=== PATIENT | female | born 1945 | race Caucasian/White ===

== ENCOUNTER 2016-05-05 01:52 | Inpatient (IN) | payer MEDICARE ==
--- NOTE | ~2016-05-05 | CR72 ---
[facility] A Service of [facility] & [facility] / [facility] RADIOLOGY TEXT RESULTS PATIENT: AMMON BELLO LOCATION: CEDOF [address]49-70 : 43 UNIT #: [id number] AGE: [address]: Estella Goff MD SEX: F ORDER DR: [id number] [facility] [address] [place], [place] [address] [id number] MR#: [id number] Acc #: [id number] NAME: AMMON BELLO. : 1945 SEX: F STUDY DATE/TIME: 05/05/2016 01:28 UNIT: CEDOF ROOM: 56520 STUDY DESCRIPTION: CR Chest Single View Portable Attending Physician: Estella Goff M.D. Ordering Physician: Yariel Ambrose M.D. Primary Care Physician: Zan Davis MEDICAL IMAGING REPORT This report is preliminary unless electronic signature is present EXAM Portable chest, 05/05 at 0128 hours INDICATIONS Shortness of air with difficulty breathing that started tonight. History of hypertension. FINDINGS AP portable chest compared with 11/24/2015. Heart size is stable. There is atherosclerotic disease in the aorta, in addition to aortic ectasia. The lungs are clear except for granulomatous calcifications. No pneumothorax is seen. There is degenerative disease in the left shoulder. IMPRESSION No active disease. Dictated by... Aldo Pat Jr., M.D. THIS IS AN ELECTRONICALLY VERIFIED REPORT Aldo Pat Jr., M.D. at 05/05/2016 5:57 AM MARQUIS/milly TD: 05/05/2016 05:06 JOB #: [id number] MEDICAL IMAGING REPORT COPY
--- NOTE | ~2016-05-05 | EKG ---
PATIENT: AMMON BELLO UNIT #: [id number] Ventricular Rate: 76 BPM Atrial Rate: 76 BPM P-R Interval: 164 ms QRS Duration: 74 ms Q-T Interval: 410 ms QTC Calculation(Bezet): 461 ms P Freeburn: 55 degrees Calculated R Freeburn: -18 degrees Calculated T Freeburn: 63 degrees Diagnosis Line: Normal sinus rhythm Diagnosis Line: Normal ECG Diagnosis Line: No previous ECGs available Diagnosis Line: Confirmed by REX NEW MD ([id number]) on 05/05/2016 Diagnosis Line: 6:14:45 PM INTERPRETING MD: VIRGEN BRUNNER
--- NOTE | ~2016-05-05 | DS ---
Unit #: [id number] #: [id number] Patient: SHERICE BELLO [id number] [address] [place], [place] [address] [id number] I MR#: [id number] NAME: SHERICE BELLO. ROOM: 312 Age: 71 Sex: F Admission Date: 05/05/2016 : 1945 Discharge Date: Attending Physician: Vinod Amos M.D. Primary Care Physician: Zan Davis DISCHARGE SUMMARY DISCHARGE DIAGNOSES 1. Delirium. Atypical seizure versus manic bipolar. 2. History of seizure versus pseudoseizure on Vimpat. 3. Steroid induced diabetes. 4. Anxiety with questionable bipolar disorder. 5. Chronic respiratory failure and chronic obstructive pulmonary disease. CONSULTANTS Dr. Méndez of neurology. Dr. Doshi with psychiatry. PROCEDURES PERFORMED None. DIAGNOSTIC DATA IMAGING: Chest x-ray on 05/05/2016 with impression no active disease. CT head without contrast with impression generalized atrophy. No acute abnormalities. LABORATORY: BMP with glucose 84, BUN 25, creatinine 1.0, sodium 138, potassium 4.5, chloride 111, CO2 24, total protein 6.2, total bilirubin 0.3, AST 18, ALT 18, alkaline phosphatase 90, amylase 71, lipase 28. CBC with white blood cell count 6.1, RBC 4.58, hemoglobin 13.2, hematocrit 40.8, MCV 59.1, MCH 28.9, MCHC 32.4, RDW 13.8, platelets 198, MPV 7.6. HOSPITAL COURSE The patient is a 71-year-old female with a past medical history of chronic obstructive pulmonary disease, seizure versus pseudoseizure and psychiatric disorder. She was brought to the emergency department due to altered mental status. EMS was called when the patient had an episode where she was quite confused and then became somnolent. When the patient was seen by the admitting physician she was sleeping and snoring. After noxious stimuli she has been awake and alert, but still confused. She was trying to speak Portuguese. When asked for her name she stated that her name was Sherice Hernandez. She lives in [place]. The hospital's name is Portuguese. The patient was seen in the past multiple times and seen in consultation with Dr. Méndez. 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 She had EEG done and MRI done in the past due to seizure disorder. She would be given Ativan and would end up sedated likely because of her fragile lung status with chronic obstructive pulmonary disease. She was started in the past on Vimpat and currently recommended to remain on Vimpat. Dr. Méndez had spoken with the patient Unit #: [id number] #: [id number] Patient: SHERICE BELLO and her at the last hospitalization that the patient may have manic disorder and this may not be seizure. But in either case, she should follow up with a psychiatrist, which to my understanding the patient has not seen one since her last hospitalization and that she if is indeed having nonconvulsive seizures that the next time instead of being hospitalized at either [facility] or coming here to [facility] she should go to [facility] to be seen and evaluated by their epilepsy team. At this time we are consulting Dr. Doshi for possible manic disorder in a possibly bipolar patient. I believe the patient is truly stable medically for discharge if she is accepted to [facility] for inpatient psychiatric treatment. If not, then she could be discharged home, again stressing that she follow up with psychiatry as outpatient and that the next time that she has one of these episodes be evaluated at [facility] by the epilepsy team. This stay we have assessed her CBC, chem. 7 and lipid panel, which were all unremarkable. Alcohol was undetectable in her blood. Acetaminophen as well as salicylates were undetectable. Her urine drug screen was only positive for opioids and TCA and no others. B12 is 335. TSH is 1.0. Troponins were undetectable as well as other cardiac enzymes. RPR was nonreactive. DISCHARGE CONDITION Stable. DISPOSITION See either again by Our or home. FOLLOWUP 1. Follow up with psychiatrist. 2. Follow up with family physician within one to two weeks. ACTIVITY Resume activities as per prior to hospitalization with ambulating every day as tolerated. DISCHARGE MEDICATIONS 1. Albuterol 1 puff q.4 h. p.r.n. shortness of breath and/or dyspnea. 2. Symbicort 2 puffs inhaled b.i.d. 3. Gabapentin 800 mg p.o. t.i.d. 4. Vimpat 100 mg p.o. b.i.d. 5. Keppra 500 mg p.o. b.i.d. 6. Requip 0.25 mg q.8 h. 7. Zocor 10 mg p.o. at bedtime. 8. Montelukast 10 mg p.o. at bedtime. 9. Aspirin 81 mg p.o. daily. 10. Lortab 5/325 mg 1 tablet q.4 h. p.r.n. moderate pain. 11. Protonix 40 mg p.o. daily. Dictated by... DEMETRI Del Rio TD: 05/06/2016 13:05 JOB #: [id number] Unit #: [id number] #: [id number] Patient: SHERICE BELLO DISCHARGE SUMMARY X X DISCHARGE SUMMARY
--- NOTE | ~2016-05-05 | CO ---
Unit #: [id number] #: [id number] Patient: SHERICE LIZAMA [id number] [facility]. [place], [place] [address] [id number] I MR#: [id number] NAME: SHERICE LIZAMA. ROOM: 312 Age: 71 Sex: F Admission Date: 05/05/2016 : 1945 Attending Physician: Vinod Amos M.D. Primary Care Physician: Zan Davis Consultation Date: 05/06/2016 CONSULTATION REPORT REASON FOR CONSULTATION Bizarre behavior last night, confusion, tania. HISTORY OF PRESENT ILLNESS Ms. Sherice lizama is a 71-year-old white female, seen in room 312 at [facility] on 05/06/2016. The patient reports that she was admitted last night as she was having bizarre behavior, tried to take off her clothes. The patient reported that "I had a manic episode" and the patient was pleasant and cooperative during interview. Able to give reliable information. The patient reports that she has a history of seizure disorder and when she has seizure she has manic episode. The patient reported last episode was 2 weeks ago. The patient reports that she suffer from bipolar mood disorder and was treated at [facility] in the past. The patient was compliant, cooperative, and able to give coherent information. The patient has a sitter, but currently denied any suicidal or homicidal ideation or any psychotic symptom. The patient reports that she is not taking any medication for her bipolar. PAST PSYCHIATRIC HISTORY Remarkable for history of bipolar mood disorder. No history of any inpatient treatment recently, but in the past treated at [facility]. PAST MEDICAL HISTORY The patient's medical history is remarkable for history of seizure disorder versus pseudoseizure, steroid-induced diabetes mellitus, chronic respiratory failure, COPD, delirium resolved. MEDICATIONS The patient is currently on albuterol, Symbicort, gabapentin, Vimpat, Keppra, Requip, Zocor, aspirin, Lortab, and Protonix. FAMILY HISTORY AND SOCIAL HISTORY The patient lives with her , has a good support system. Denied any use of drugs or alcohol. No history of any abuse. REVIEW OF SYSTEMS Complete review of systems is unremarkable at this time. MENTAL STATUS EXAMINATION General appearance, the patient dressed in hospital attire, lying comfortably in bed, able to answer questions appropriately, made good eye contact. Attention span and concentration, fair. Speech, regular rate and coherent. Oriented in time, place, and person. Mood and affect were Unit #: [id number] #: [id number] Patient: SHERICE LIZAMA sad, dysphoric, and anxious. Thought process, coherent and goal directed. Thought content, the patient denied any thoughts of harming self or others or any psychotic symptom. Recent and remote memory, fair. Language, able to name object and repeat phrases. Fund of knowledge, fair. Insight and judgment, fair to slightly impaired. DIAGNOSES Psychiatric: Bipolar mood disorder, not otherwise specified, F31.89; delirium, F05, resolved. Secondary diagnosis: Deferred. Medical diagnosis: Please refer to H and P. Stressors: Psychosocial stressors. ASSESSMENT/PLAN 1. Supportive psychotherapy and psychoeducation provided to the patient. 2. Educated about benefits and side effects of medication and course and prognosis of illness. 3. The patient agreed with the plan to try medication, plan to start the patient on Zyprexa 5 mg at bedtime for mood stabilization, and I also advised the patient to follow up in the outpatient clinic. The patient may be discharged home with a plan to follow up in outpatient clinic. Please feel free to call if any questions, telephone #[phone]. At this time, the patient is not suicidal or homicidal or psychotic. At this time, the patient does not need any inpatient psychiatric treatment. Dictated by... Silva Shetty/lety TD: 05/07/2016 01:23 JOB #: [id number] CONSULTATION REPORT X Giancarlo Doshi MD X CONSULTATION REPORT
--- NOTE | ~2016-05-05 | CO ---
Unit #: [id number] #: [id number] Patient: AMMON BELLO [id number] [facility]. [place], [place] [address] [id number] I MR#: [id number] NAME: AMMON BELLO. ROOM: 312 Age: 71 Sex: F Admission Date: 05/05/2016 : 1945 Attending Physician: Vinod Amos M.D. Primary Care Physician: Zan Davis Consultation Date: 05/05/2016 CONSULTATION REPORT PRIMARY CARE PHYSICIAN Dr. Jose Tillman and Zan Davis, Nurse Practitioner. PROBLEM LIST 1. This patient has been evaluated in the past with history of encephalopathy and mental status changes like this. She has been at least intubated 3 times to my knowledge, for this. 2. History of pseudoseizures and possible seizure and supposed to have epilepsy evaluation at [facility] or other institution of choice. 3. Diastolic dysfunction. 4. Anxiety and bipolar disorder per records. 5. Possible manic episodes. 6. Hyperlipidemia. 7. Hypertension. 8. Chronic respiratory failure, on home O2. 9. History of steroid-induced diabetes. 10. Parotid surgery. 11. Cholecystectomy. 12. Thyroid surgery and previous EGD and colonoscopy. SOURCE OF INFORMATION The medical records. I have seen this patient twice, also evaluation done by other physicians including on this admission and also my discussion with the patient's who actually came to the bedside. HISTORY OF PRESENT ILLNESS This is a 71-year-old female, who is actually known to me. She has had frequent episodes of confusion like events, questionable seizures, questionable pseudoseizures and she ends up with possibly Ativan and other antiepileptics and because of her respiratory failure frequently has been intubated. She has been at [facility], she has been at [facility]. I saw her in last November and recommend that she has [facility] evaluation done for epilepsy and also psych evaluation done. In the meantime, I am not sure if that was ever done, because her is unaware of any such evaluations or plans. Since the last evaluation, she has been to [facility], I think one of the best approach would be the best happened again instead of going to [facility] or [facility], she goes straight to [facility] and be evaluated there. She would have this confusional episodes, manic type episode, she would not sleep for days, now she is trying to talk in [place] and then she ends up waking up 7 days later and absolutely fine and because of respiratory distress she has been intubated. Unit #: [id number] #: [id number] Patient: AMMON BELLO She is getting better. She is following commands. She is oriented to herself. She is moving all extremities and nothing focal. No seizure or seizure-like event. She has had prior evaluation done in detail. PAST MEDICAL HISTORY As discussed above. PAST SURGICAL HISTORY As discussed above. ALLERGIES Phenergan, penicillin, sulfa and possible IV dye. HOME MEDICATIONS As per the MAR and possibly also in conjunction with previous records. Neurontin 800 mg t.i.d. montelukast, Requip 0.25 mg every 8 hours, Zocor 10 mg at bedtime, Pantoprazole 40 mg, Symbicort 160/4.5 mcg, Ventolin, Vimpat 100 mg p.o. b.i.d., Keppra 500 mg b.i.d., aspirin 81 mg p.o. daily, Lortab. Previously, I have seen similar treatment, but respiratory medication. FAMILY HISTORY Tuberculosis and gastric cancer. SOCIAL HISTORY The patient is , lives with her . Does not smoke or drink alcohol. REVIEW OF SYSTEMS Mostly as discussed in history of present illness. Very difficult to get details. PHYSICAL EXAMINATION VITAL SIGNS: Temperature 97.4, pulse 80, respirations 18, blood pressure 186/112, weight of 143 pounds. When she came in blood pressure was 149/76, the maximum is this one and I see gradual increase because earlier it was 151 systolic then 171 systolic, now 186, also diastolic went up. NEUROLOGIC: The patient is awake. She is alert. She follows some simple commands. She gave me a thumbs up. She told me her name and other she is confabulating and perseverating. Cranial examination demonstrates respond to threats in all simmons. Eye movements are conjugate. No ptosis. No nystagmus. I do not see any facial asymmetry. Hearing seemed to be intact. Tongue was midline. I could not visualize the oropharynx or uvula. Head turning was spontaneous. On motor examination, she has normal bulk and tone. She is moving all extremities. Strength was at least 5-/5 all over. Sensory examination intact for soft touch and pain sensation. No extinction was seen. Romberg was not evaluated. Gait examination was deferred. I could not get any reflexes. Toes are equivocal. Unit #: [id number] #: [id number] Patient: AMMON BELLO DIAGNOSTIC STUDIES LABORATORY RESULTS: Reviewed, I am really not seeing anything major. IMAGING STUDIES: Reviewed, I am really not seeing anything major. IMPRESSION Recurrent episodes of confusion. We have seen exactly the same thing in the past and she gets better. Is this manic episode that she have seizure and true seizures and nonepileptic seizures, my recommendation persist as I said before that she needs to have epilepsy monitoring done at [place] and based on that decide future course of action. I would not as an either change her medication right now supportive care. Call me for any other questions, issues, or concerns and talked to her , he says he will get on it right now, so probably the best thing would be Psych evaluation and go from there. Call me for any other questions, issues, or concerns. Dictated by... Silva Robles/lety TD: 05/06/2016 03:35 JOB #: [id number] CONSULTATION REPORT X Sharda Méndez MD CONSULTATION REPORT
--- NOTE | ~2016-05-05 | HP ---
Unit #: [id number] #: [id number] Patient: AMMON BELLO [id number] [place], [place] [address] [id number] I MR#: [id number] NAME: AMMON BELLO. ROOM: 03774 Age: 71 Sex: F Admission Date: 05/05/2016 : 1945 Attending Physician: Estella Goff M.D. Primary Care Physician: Zan Davis HISTORY AND PHYSICAL CHIEF COMPLAINT Altered mental status. HISTORY This 71-year-old female with COPD, pseudoseizures and possibly seizures, psychiatric disorder, is admitted for altered mental status. Unfortunately, no family is present. I am told by the ER physician that the patient was thought to be possibly manic and EMS was called. She was brought to this emergency department where she was quite confused, then became quite somnolent. When I went to see the patient, she had snoring respirations. After noxious stimuli, she did become awake and alert but is confused. She tends to perseverate the word Nigerien and alrighty. When I asked her her name, she told me Ammon Hernandez, that she lives with [facility] and that hospital's name was [facility]. I am really unable to get further history. The patient has been admitted to this facility in the past for altered mental status and encephalopathy requiring intubation for airway protection. She was thought to have pseudoseizures and possibly seizures. She has been seen in the past by Dr. Méndez. He suggested that she be evaluated at [facility]. Was previously taking Vimpat and Keppra at the time of her last discharge. PAST MEDICAL HISTORY 1. Episodes of altered mental status and encephalopathy. 2. The patient has required intubation for airway protection. 3. History of pseudoseizures and possibly seizures pending evaluation at [facility]. 4. Diastolic dysfunction with previous echo revealing preserved ejection fraction. 5. Anxiety and possibly bipolar disorder per old records. 6. Hyperlipidemia. 7. Hypertension. 8. Chronic respiratory failure on 2 L of oxygen with possible COPD, followed by Dr. Marinelli. 9. History of steroid-induced diabetes. 10. Parotid surgery. 11. Cholecystectomy. 12. Thyroid surgery. 13. Previous EGD and colonoscopy. ALLERGIES Phenergan, penicillin, sulfa and possibly IV dye. Unit #: [id number] #: [id number] Patient: AMMON BELLO HOME MEDICATIONS Uncertain. I do have a discharge summary from 11/2015 which includes: 1. Ventolin inhaler as needed. 2. Symbicort 160/4.5, two puffs b.i.d. 3. Neurontin 300 mg t.i.d. 4. Vimpat 100 mg b.i.d. 5. Keppra 500 mg b.i.d. 6. Requip 0.25 mg t.i.d. 7. Zocor 10 mg q. h.s. 8. Levemir. 9. Aspirin 81 mg daily. 10. Singulair 10 mg daily. 11. Protonix 40 mg daily. FAMILY HISTORY Unobtainable. Per old records, tuberculosis and gastric cancer. SOCIAL HISTORY I believe the patient lives with her . Does not smoke or drink alcohol. When I asked her who she lives with she just says "[place]." REVIEW OF SYSTEMS Impossible to obtain for above mentioned reasons. PHYSICAL EXAMINATION GENERAL APPEARANCE: Initially somnolent but then arousable, pleasantly confused 71-year-old female, currently in no acute distress. VITAL SIGNS: Temperature 97.4, pulse 88, respirations 20, blood pressure 149/76. O2 saturation is 94% on room air. HEENT: Eyes PERRLA. Extraocular muscles are intact. Pharynx edentulous. NECK: Supple without adenopathy or thyromegaly. CHEST: Clear. CARDIAC: Normal S1 and S2 without murmur. ABDOMEN: Bowel sounds are present. No hepatosplenomegaly, tenderness or masses. EXTREMITIES: Without edema. Pedal pulses are present. NEUROLOGIC EXAMINATION: Again, the patient was initially somnolent. With noxious stimuli, she became awake, is confused. Tends to perseverate on the words alrighty and Nigerien. She follows commands, is able to move all of her extremities. Cranial nerves are intact. DIAGNOSTIC STUDIES LABORATORY: Hematocrit is 37.4, normal white count and platelet count. SMA-12 - glucose 117, BUN 29, CO2 is 21, ammonia level 41, lactic acid is normal. Acetaminophen, salicylate and alcohol negligible. Cardiac markers negative. Urine tox screen positive for opiates and TCAs. I do see that patient has been prescribed Lortab in the past. Urinalysis is negative. Unit #: [id number] #: [id number] Patient: AMMON BELLO IMAGING: Head CT - generalized atrophy. Chest x-ray - no acute disease. CARDIOVASCULAR: EKG - normal sinus rhythm, rate 76, normal appearing. ASSESSMENT 1. Episodes of altered mental status: I am unsure if these are related to seizures versus psychiatric. 2. History of seizures versus pseudoseizures. 3. Steroid-induced adult onset diabetes mellitus. 4. Anxiety and possibly bipolar disorder. 5. Chronic respiratory failure and chronic obstructive pulmonary disease. PLANS 1. Obtain MRI of the brain, and ask neurology to see again in consultation. 2. Verify home medicines and hold sedatives. 3. Obtain TSH, B12, VDRL. 4. SCDs. 5. IV fluids. 6. Hopefully obtain better history if family presents to the hospital. Dictated by Estella Goff M.D. AML/df TD: 05/05/2016 05:42 JOB #: [id number] HISTORY AND PHYSICAL X Estella Goff MD HISTORY AND PHYSICAL
--- NOTE | ~2016-05-05 | CT71 ---
[facility] A Service of [facility] RADIOLOGY TEXT RESULTS PATIENT: AMMON BELLO LOCATION: CEDOF [address]-42 : [birth year] UNIT #: [id number] AGE: [address]: Estella Goff MD SEX: F ORDER DR: [id number] [facility] [address] [facility]. [place], [place] [address] [id number] MR#: [id number] Acc #: [id number] NAME: AMMON BELLO. : 1945 SEX: F STUDY DATE/TIME: 05/05/2016 01:35 UNIT: CEDOF ROOM: 16147 STUDY DESCRIPTION: CT Head Wo Contrast Attending Physician: Estella Goff M.D. Ordering Physician: Yariel Ambrose M.D. Primary Care Physician: Zan Davis MEDICAL IMAGING REPORT This report is preliminary unless electronic signature is present EXAM Head CT, 05/05 at 0135 hours INDICATIONS Patient having a manic episode. Patient confused with mumbling for the last 3 days. History of hypertension and seizures. FINDINGS This CT exam was performed with one or more of the following radiation dose reduction techniques: Automatic exposure control, adjustment of mA and/or kV according to patient size, and iterative reconstruction. Axial images were obtained from the base to the vertex without contrast. Comparison made with 11/13/2015. Again seen is generalized atrophy with a frontal predominance. Ventricular size and configuration are normal. There is no acute infarct or hemorrhage. There are no masses. There are no skull fractures. There is chronic partial opacification of mastoid air cells on the right. IMPRESSION Generalized atrophy. No acute abnormalities. Dictated by... Aldo Pat Jr., M.D. THIS IS AN ELECTRONICALLY VERIFIED REPORT Aldo Pat Jr., M.D. at 05/05/2016 5:57 AM MARQUIS/milly TD: 05/05/2016 05:02 JOB #: [id number] [facility] A Service of [facility] RADIOLOGY TEXT RESULTS PATIENT: AMMON BELLO LOCATION: [facility] [address]-26 : [birth year] UNIT #: [id number] AGE: [address]: Estella Goff MD SEX: F ORDER DR: MEDICAL IMAGING REPORT COPY
[2016-05-05 01:11] LABS: URINE SOURCE CLEAN CATCH
[2016-05-05 01:19] LABS: POC - CKMB 1.7 ng/mL (0.0-7.9); POC - TROPONIN <0.05 ng/mL (<=0.05)
[2016-05-05 01:31] LABS: AMPHETAMINE NEG (NEG); BARBITURATES NEG (NEG); BENZODIAZEPINES NEG (NEG); COCAINE NEG (NEG); MARIJUANA NEG (NEG); OPIATES POS (NEG); TRICYCLIC ANTIDEPRESSANTS POS (NEG); U METHADONE NEG (NEG)
[2016-05-05 01:31] LABS: BASOPHIL% 0.7 % (0-2.5); EOSINOPHIL# 0.2 X10e3 (0-0.7); EOSINOPHIL% 3.1 % (0.0-7.0); HEMATOCRIT 37.4 % (35.0-45.0); HEMOGLOBIN 12.3 gm/dL (12.0-16.0); LYMPHOCYTE# 1.4 X10e3 (1.0-3.5); MEAN CELL VOLUME 88.2 FL (83-96); MEAN CORPUSCULAR HEMOGLOBIN 29.1 PG (28-34); MEAN PLATELET VOLUME 7.6 FL (6.5-11.5); MONOCYTE# 0.6 X10e3 (0-1.0); MONOCYTE% 11.8 % (3.0-12.0); NEUTROPHIL% 57.4 % (40-75); PLATELET COUNT 187 X10e3 (140-420); RED BLOOD COUNT 4.24 X10e (3.90-5.30); RED CELL DISTRIBUTION WIDTH 13.7 % (11.0-15.5); WHITE BLOOD COUNT 5.2 X10e3 (4.0-10.5)
[2016-05-05 01:38] LABS: ACETAMINOPHEN <10 ug/mL; ALBUMIN SERUM 3.8 g/dL (3.5-5.0); ALCOHOL BLOOD <5 mg/dL (0); ALKALINE PHOSPHATASE 90 U/L (32-92); ALT (SGPT) 18 U/L (10-40); AST (SGOT) 18 U/L (10-42); BILIRUBIN, DIRECT 0.1 mg/dL (0.0-0.2); BILIRUBIN,INDIRECT 0.2 mg/dL (0.0-0.9); BILIRUBIN,TOTAL 0.3 mg/dL (0.2-2.0); BLOOD UREA NITROGEN 29 mg/dL (9-23); CALCIUM SERUM 8.7 mg/dL (8.4-10.2); CARBON DIOXIDE 21 mmol/L (22-31); CHLORIDE 108 mmol/L (100-111); GLOM FILT RATE Estimated 57.8 mL/min (>60); GLUCOSE FASTING 117 mg/dL (70-110); POTASSIUM 4.1 mmol/L (3.5-5.1); PROTEIN TOTAL SERUM 6.2 g/dL (6.0-8.3); SALICYLATE <4.0 mg/dL; SODIUM 138 mmol/L (135-145)
[2016-05-05 01:40] LABS: DIFF IND NO
[2016-05-05 01:49] LABS: URINE APPEARANCE BLOODY; URINE COLOR YELLOW
[2016-05-05 01:50] LABS: URINE GLUCOSE NORM (NEG); URINE KETONE NEG (NEG); URINE LEUKOCYTE ESTERASE NEG (NEG); URINE NITRATE NEG (NEG); URINE PROTEIN NEG (NEG)
[2016-05-05 01:51] LABS: CULTURE INDICATED? NO; URINE BILIRUBIN NEG (NEG); URINE BLOOD NEG (NEG); URINE UROBILINOGEN NORM (NEG)
[~2016-05-05 01:52] MED LIST: ALBUTEROL17 GM INH; ALPRAZOLAM; ALPRAZOLAM PO; ASPIRIN PO; BENZONATATE PO; BUMEX1 MG PO; CARDIZEM CD; CARDIZEM SR PO; CARTIA XT240 M1 PO; CEFTRIAXON1 G/PIGGYB; CIMETIDINE800 MG PO; DILTIAZEM 24HR300 M2 PO; HUMIBID-LA600 MG PO; HYDROCODON-ACE1 EAC7 PO; HYDROXYZINE HCL25 M1 PO; INDERAL40 MG PO; INDERAL40 MG PO/SL; K-DUR20 ME1 DOB; KEPPRA500 MG PO; LEVAQUIN250 MG PO; LEVAQUIN750 M1 PO; LEVEMIR SUBQ; LIPITOR; LIPITOR PO; LORTAB 5-325 M1 EACH PO; LORTAB 5/500 TA1 TA1 PO; MAG OX PO; MONTELUKAST SOD10 MG PO; NEURONTIN PO; NEURONTIN800 MG PO; NEURONTIN800 MG PO/SL; NILSTAT PO; OMEPRAZOLE40 M1 PO; PANTOPRAZOLE SO40 MG PO; PERCOCET5/325 PO; PHENERGAN PO; PROPRANOLOL PO; REQUIP0.25 MG PO; SINGULAIR PO; SYMBICORT INH; TAGAMET; TAGAMET300 MG PO; TRAZODONE HCL150 MG PO; TYLOX1 CAP 5/50 PO; ULTRAM; VICODIN 5/1 TAB 5/50 PO; VICODIN 5/500 T1 TAB PO; VIMPAT100 MG PO; ZITHROMAX PO; ZOCOR10 MG PO; ZOFRAN PO
[2016-05-05 05:22] LABS: BASOPHIL# 0.1 X10e3 (0-0.3); BASOPHIL% 1.1 % (0-2.5); DIFF IND NO; EOSINOPHIL# 0.1 X10e3 (0-0.7); EOSINOPHIL% 2.3 % (0.0-7.0); HEMATOCRIT 40.8 % (35.0-45.0); HEMOGLOBIN 13.2 gm/dL (12.0-16.0); LYMPHOCYTE# 1.3 X10e3 (1.0-3.5); LYMPHOCYTE% 21.6 % (17.0-45.0); MEAN CELL VOLUME 89.1 FL (83-96); MEAN CORPUSCULAR HEMOGLOBIN 28.9 PG (28-34); MEAN CORPUSCULAR HGB CONC 32.4 g/dL (30-36); MEAN PLATELET VOLUME 7.6 FL (6.5-11.5); MONOCYTE# 0.5 X10e3 (0-1.0); MONOCYTE% 7.4 % (3.0-12.0); NEUTROPHIL# 4.2 X10e3 (1.5-7.1); NEUTROPHIL% 67.6 % (40-75); PLATELET COUNT 198 X10e3 (140-420); RED BLOOD COUNT 4.58 X10e (3.90-5.30); RED CELL DISTRIBUTION WIDTH 13.8 % (11.0-15.5); WHITE BLOOD COUNT 6.1 X10e3 (4.0-10.5)
[2016-05-05 06:01] LABS: GLOM FILT RATE Estimated 57.8 mL/min (>60); POTASSIUM 4.5 mmol/L (3.5-5.1)
[2016-05-06] MEDS ORDERED: ZYPREXA PO (17:20)
== END 2016-05-06 19:15 | disposition home or self-care (01) | DRG 885 ==
LOC: CED 01:52 → CEDOF 04:10 → C3A PCU 11:21
PROVIDERS: Emergency Medicine; Internal Medicine
DX: F31.9 Bipolar disorder, unspecified (principal); J96.10 Chronic respiratory failure, unspecified whether with hypoxia or hypercapnia; E11.9 Type 2 diabetes mellitus without complications; G40.909 Epilepsy, unspecified, not intractable, without status epilepticus; R41.82 Altered mental status, unspecified; I10 Essential (primary) hypertension; F41.9 Anxiety disorder, unspecified; E78.5 Hyperlipidemia, unspecified; Z90.49 Acquired absence of other specified parts of digestive tract; Z80.0 Family history of malignant neoplasm of digestive organs; Z91.041 Radiographic dye allergy status; Z88.0 Allergy status to penicillin; Z88.2 Allergy status to sulfonamides; Z79.82 Long term (current) use of aspirin; Z79.4 Long term (current) use of insulin
CPT/HCPCS: 36415; 70450; 71010; 80048; 80076; 80307; 81003; 82140; 82550; 82553; 82607; 82947; 83605; 84443; 84484; 85025; 86592; 93005; 94640; 94760; 99285; G0480; J1630

== ENCOUNTER 2016-05-23 14:27 | Inpatient (IN) | payer MEDICARE ==
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
--- NOTE | ~2016-05-23 | CR150 ---
[facility] A Service of [facility] RADIOLOGY TEXT RESULTS PATIENT: AMMON BELLO LOCATION: [facility] 573-01 : 43 UNIT #: [id number] AGE: [address]: Fernando Alvarado MD SEX: F ORDER DR: [id number] [facility] [address] [address] [facility]. [place], [place] [address] [id number] I MR#: [id number] #: [id number] NAME: AMMON BELLO. : 1945 SEX: F STUDY DATE/TIME: 05/28/2016 10:38 UNIT: [facility] ROOM: [facility] STUDY DESCRIPTION: CR Hip Min 2 Views Lt Attending Physician: Fernando Alvarado M.D. Ordering Physician: Kenn Cooney M.D. Primary Care Physician: Zan Davis MEDICAL IMAGING REPORT This report is preliminary unless electronic signature is present EXAM Left hip series 05/28/2016 INDICATION 71-year-old female with history of fracture. Fell 6 days ago. Pain in the left hip. TECHNIQUE Frontal and lateral views of the left hip were performed. 1 of the views includes a frontal pelvis. No relevant comparisons. FINDINGS The patient is status post screw and medullary medhat fixation of an otherwise probable chronic fracture in the mid shaft left femur. There is callus formation medially and laterally with a fracture line lucency laterally on the frog view. This lucent fracture line is not visualized on the orthogonal views. Imaging features are suspicious for an acute on chronic fracture deformity absent prior studies for comparison. Correlate with time course of injury in this regard for the patient. There are fracture deformities of the inferior and superior pubic rami on the left as well. There is callus formation associated with the inferior pubic ramus fracture. No distinct callous formation associated with the superior pubic ramus fracture. These may be subacute fractures particularly the inferior pubic ramus fracture although an acute fracture of the superior pubic ramus could present similarly and correlation with time course of injury is again recommended as we have no comparison studies. There is mild degenerative change of both hips. There are degenerative changes in the SI joints right greater than left and there is degenerative change in the lower lumbar spine. The bones are osteopenic. IMPRESSION ST[facility]. [facility] A Service of [facility] RADIOLOGY TEXT RESULTS PATIENT: AMMON BELLO LOCATION: [facility] 573-01 : 43 UNIT #: [id number] AGE: [address]: Fernando Alvarado MD SEX: F ORDER DR: 1. The patient is status post screw and medhat fixation of what appears to represent an otherwise chronic fracture deformity of the mid shaft left femur. There is however a lucent fracture line laterally which is suspicious for an acute on chronic fracture deformity. Correlate with time course of injury as we have no comparisons for this patient. 2. Fracture deformities of the inferior and superior pubic rami on the left. The inferior pubic ramus fracture is likely subacute to chronic. The superior pubic ramus fracture is of unclear time duration and could be an acute or subacute fracture. Correlate with time course of injury. 3. Degenerative changes in the lumbar spine and SI joints right greater than left and to both hips in a limited fashion. Osteopenia. STAT * RESULT Dictated by... Amado Phillips M.D. THIS IS AN ELECTRONICALLY VERIFIED REPORT Amado Phillips M.D. at 05/28/2016 5:21 PM HÉCTOR/luis alfredo TD: 05/28/2016 13:58 JOB #: [id number] MEDICAL IMAGING REPORT COPY
--- NOTE | ~2016-05-23 | CO ---
Unit #: [id number] #: [id number] Patient: SHERICE KO [id number] [id number] [facility]. [place], [place] [address] [id number] I MR#: [id number] NAME: SHERICE KO. ROOM: 573 Age: 71 Sex: F Admission Date: 05/23/2016 : 1945 Attending Physician: Fernando Alvarado M.D. Primary Care Physician: Zan Davis Consultation Date: 05/28/2016 CONSULTATION REPORT REASON FOR CONSULTATION Followup. DISCUSSION Ms. Sherice oK is a 71-year-old female, seen in room 573 at [facility] on 05/28/2016. The patient was pleasant, cooperative, was able to eat her dinner. The patient reports that she was diagnosed with pelvic fracture. The patient was admitted on 05/23/2016. The patient had multiple bruises on her body unexplainable. The patient reports that when she starts walking she noticed pain. The patient reports that her hip x-ray showed that she has fracture of superior pubic rami. The patient reports that she will be going to rehab. The patient reports that she is feeling sad and depressed, but denied any thoughts of harming self or others or any psychotic symptom. Tolerating medication fairly well. The patient is currently on haloperidol 0.5 mg t.i.d., Keppra, Vimpat, Lovenox, and recently started on Medrol pack. REVIEW OF SYSTEMS Complete review of systems is unremarkable. MENTAL STATUS EXAMINATION General appearance; the patient dressed casually, lying comfortably in bed, pleasant, cooperative, made good eye contact. Attention span and concentration, fair. Speech, regular rate. Oriented in time, place, and person. Mood and affect were sad and dysphoric, but able to smile. Thought process, coherent. Thought content, the patient denied any thoughts of harming self or others and denied any psychotic symptom. Recent and remote memory, fair. Language, able to name object, repeat phrases. Fund of knowledge, fair. Insight and judgment, fair to slightly impaired. DIAGNOSIS Psychiatric: Bipolar mood disorder, not otherwise specified, F31.89. ASSESSMENT/PLAN 1. Supportive psychotherapy and psychoeducation provided to the patient. 2. Educated about benefits and side effects of medication and course and prognosis of illness. Advised to continue with current medication and consider further adjustment if needed. Dictated by... Giancarlo Doshi M.D. Unit #: [id number] #: [id number] Patient: SHERICE KO MAGALIS/lety TD: 05/29/2016 01:20 JOB #: [id number] CONSULTATION REPORT X Giancarlo Doshi MD X CONSULTATION REPORT
--- NOTE | ~2016-05-23 | EKG ---
PATIENT: AMMON BELLO UNIT #: [id number] Ventricular Rate: 84 BPM Atrial Rate: 84 BPM P-R Interval: 120 ms QRS Duration: 76 ms Q-T Interval: 432 ms QTC Calculation(Bezet): 510 ms P Norwell: 7 degrees Calculated R Norwell: -27 degrees Calculated T Norwell: 66 degrees Diagnosis Line: Normal sinus rhythm Diagnosis Line: Septal infarct (cited on or before 23-MAY-2016) Diagnosis Line: Possible Lateral infarct , age undetermined Diagnosis Line: T wave abnormality, consider anterior ischemia Diagnosis Line: Prolonged QT Diagnosis Line: Abnormal ECG Diagnosis Line: When compared with ECG of 24-MAY-2016 06:24, Diagnosis Line: Questionable change in initial forces of Septal Diagnosis Line: leads Diagnosis Line: Nonspecific T wave abnormality, worse in Inferior Diagnosis Line: leads Diagnosis Line: T wave inversion more evident in Anterior leads Diagnosis Line: Confirmed by REX NEW MD ([id number]) on 05/26/2016 Diagnosis Line: 9:57:29 PM INTERPRETING MD: VIRGEN BRUNNER
--- NOTE | ~2016-05-23 | CT71 ---
[facility] A Service of [facility] RADIOLOGY TEXT RESULTS PATIENT: AMMON BELLO LOCATION: [address] : [birth year] UNIT #: [id number] AGE: [address]: Fernando Alvarado MD SEX: F ORDER DR: [id number] [facility] [address] [place], [place] [address] [id number] I MR#: [id number] Acc #: [id number] NAME: AMMON BELLO. : 1945 SEX: F STUDY DATE/TIME: 05/23/2016 14:15 UNIT: C2A ROOM: [facility] STUDY DESCRIPTION: CT Head Wo Contrast Attending Physician: Hector Marr M.D. Ordering Physician: Javier Farr D.O. Primary Care Physician: Zan Davis MEDICAL IMAGING REPORT This report is preliminary unless electronic signature is present EXAM Head CT, no contrast, 05/23/2016 INDICATIONS New onset of confusion that began today, nonverbal, moaning, bipolar disorder, uncooperative patient, history of hypertension and myocardial infarction and insulin dependent diabetes. TECHNIQUE Noncontrast CT brain was performed and compared with 05/05/2016. This CT exam was performed with one or more of the following radiation dose reduction techniques: Automatic exposure control, adjustment of mA and/or kV according to patient size, and iterative reconstruction. FINDINGS CT BRAIN: There is motion degradation; these were the best images possible. There is mild generalized atrophy, age appropriate. Sulci and ventricles otherwise unremarkable with no midline shift, no evidence of acute intracranial hemorrhage. There is no mass, mass effect or edema to suggest acute infarct, no extraaxial fluid collections are present. Mild periventricular chronic ischemic changes are present. Globes are intact. Bones are intact. There is fluid in the right mastoid air cell complex, unchanged. IMPRESSION 1. Motion degraded study demonstrates generalized atrophy and chronic ischemic changes. No clearly acute intracranial process. 2. Opacification of the right mastoid air cell complex. This was also present on the prior study. Dictated by... [facility] A Service of [facility] RADIOLOGY TEXT RESULTS PATIENT: AMMON BELLO LOCATION: [address] : 43 UNIT #: [id number] AGE: [address]: Fernando Alvarado MD SEX: F ORDER DR: Amado Phillips M.D. THIS IS AN ELECTRONICALLY VERIFIED REPORT Amado Phillips M.D. at 05/24/2016 7:39 AM HÉCTOR/milly TD: 05/23/2016 21:57 JOB #: [id number] MEDICAL IMAGING REPORT COPY
--- NOTE | ~2016-05-23 | EKG ---
PATIENT: AMMON BELLO UNIT #: [id number] Ventricular Rate: 118 BPM Atrial Rate: 118 BPM P-R Interval: 132 ms QRS Duration: 70 ms Q-T Interval: 334 ms QTC Calculation(Bezet): 468 ms P Plover: 74 degrees Calculated R Plover: 7 degrees Calculated T Plover: 81 degrees Diagnosis Line: Sinus tachycardia with Fusion complexes Diagnosis Line: Nonspecific ST abnormality Diagnosis Line: Abnormal ECG Diagnosis Line: When compared with ECG of 05-MAY-2016 01:12, Diagnosis Line: Fusion complexes are now Present Diagnosis Line: Vent. rate has increased BY 42 BPM Diagnosis Line: Non-specific change in ST segment in Lateral leads Diagnosis Line: Confirmed by BEATRIZ CHANEL MD ([id number]) on Diagnosis Line: 05/24/2016 12:09:06 AM INTERPRETING MD: YANIQUE BRUNNER
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
--- NOTE | ~2016-05-23 | DS ---
Unit #: [id number] #: [id number] Patient: AMMON BELLO [id number] [address] [place], [place] [address] [id number] I MR#: [id number] NAME: AMMON BELLO. ROOM: 573 Age: 71 Sex: F Admission Date: 05/23/2016 : 1945 Discharge Date: Attending Physician: Fernando Alvarado M.D. Primary Care Physician: Zan Davis DISCHARGE SUMMARY Please see discharge summary for complete details. HOSPITAL COURSE The patient underwent left hip x-ray as well as a CT pelvis secondary to discomfort and/or difficulty with ambulation. X-ray of left hip did reveal lucent fracture line mildly was suspicious for acute on chronic fracture deformity. There were numerous fracture deformities, which were also noted in the pelvis. We consulted Dr. Colvin and associates. Orthopedic services saw and evaluated the patient. Recommended weightbearing as tolerated but from their point of view, no surgical intervention was recommended at this point in time. The patient will be discharged home. We will arrange for home health as well as a walker at the time of discharge. Per Physical Therapy services, the patient is cleared for and stable for home discharge. Dictated by... Silva Gonzalez/lety TD: 05/29/2016 21:41 JOB #: [id number] DISCHARGE SUMMARY X Fernando Alvarado MD X DISCHARGE SUMMARY
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
--- NOTE | ~2016-05-23 | CR72 ---
[facility] A Service of [facility] RADIOLOGY TEXT RESULTS PATIENT: AMMON BELLO LOCATION: [address] : [birth year] UNIT #: [id number] AGE: [address]: Fernando Alvarado MD SEX: F ORDER DR: [id number] [facility] [address] [place], [place] [address] [id number] I MR#: [id number] Acc #: [id number] NAME: AMMON BELLO. : 1945 SEX: F STUDY DATE/TIME: 05/23/2016 14:32 UNIT: C2A ROOM: 226 STUDY DESCRIPTION: CR Chest Single View Portable Attending Physician: Hector Marr M.D. Ordering Physician: Javier Farr D.O. Primary Care Physician: Zan Davis MEDICAL IMAGING REPORT This report is preliminary unless electronic signature is present EXAM Portable chest INDICATIONS Shortness of air today. PROCEDURE Frontal view chest. COMPARISON 05/05/2016 FINDINGS Patient is rotated. Heart size is probably stable. No new dense opacity. No appreciable pleural fluid or pneumothorax. IMPRESSION No active process when allowing for significant rotation on this study. Dictated by... Brain Melendez M.D. THIS IS AN ELECTRONICALLY VERIFIED REPORT Brain Melendez M.D. at 05/25/2016 7:00 AM EED/psc TD: 05/23/2016 22:01 JOB #: [id number] MEDICAL IMAGING REPORT COPY
--- NOTE | ~2016-05-23 | HP ---
Unit #: [id number] #: [id number] Patient: AMMON BELLO [id number] [address] [address] [id number] MR#: [id number] NAME: AMMON BELLO. ROOM: 226 Age: 71 Sex: F Admission Date: 05/23/2016 : 1945 Attending Physician: Hector Marr M.D. HISTORY AND PHYSICAL CHIEF COMPLAINT Altered mental status. HISTORY OF PRESENT ILLNESS The patient is a 71-year-old female with a history of COPD, pseudoseizures and possibly seizures, and psychiatric disorder with bipolar disorder, who was recently discharged from the hospital on May 06 after evaluation by Neurology and Psychiatry. The patient was found to be in altered mental status this morning. The patient lives at home, and the called EMS for the patient with altered mental status. The patient had workup in the ER during the last admission and was discharged home on Zyprexa for bipolar disorder. However, the patient did not follow up on the Zyprexa and was unable to obtain the medications. The patient is not able to provide this history, and the history is obtained by reviewing the records and speaking to the RN at the bedside. No further history is available. The patient has multiple scratch heaton on the upper and lower extremities. PAST MEDICAL HISTORY 1. Altered mental status and encephalopathy. 2. Pseudoseizures. 3. Diastolic dysfunction with previous echo revealing preserved ejection fraction. 4. Anxiety and bipolar disorder. 5. Hyperlipidemia. 6. Hypertension. 7. Chronic respiratory failure. 8. Steroid-induced diabetes. PAST SURGICAL HISTORY 1. Parotid surgery. 2. Cholecystectomy. 3. Thyroid surgery. 4. Previous EGD and colonoscopy. ALLERGIES PHENERGAN, PENICILLIN, SULFA, AND POSSIBLY IV DYE. HOME MEDICATIONS 1. Zyprexa. 2. Lortab. 3. Keppra. 4. Aspirin. 5. Vimpat. Unit #: [id number] #: [id number] Patient: AMMON BELLO 6. Ventolin. 7. Symbicort. 8. Neurontin. 9. Montelukast. 10. Requip. 11. Zocor. 12. Pantoprazole. FAMILY HISTORY Unable to obtain. SOCIAL HISTORY Unable to obtain. REVIEW OF SYSTEMS Unable to obtain. PHYSICAL EXAMINATION GENERAL: Patient is lying in bed not in acute distress. VITAL SIGNS: Temperature 98.4, pulse 127, respiratory rate 24, blood pressure 179/94, and saturating 91% on room air. HEENT: Head atraumatic, normocephalic. Pupils equal, round, and reacting to light and accommodation. Extraocular movements are intact. Dry mucous membranes. NECK: Supple. LUNGS: Clear to auscultation. HEART: Regular rate and rhythm. ABDOMEN: Soft. Positive bowel sounds. EXTREMITIES: Multiple scratch heaton. NEUROLOGIC: Patient is moaning and unable to follow the commands and unable to communicate. PSYCHIATRIC: Unable to assess. DIAGNOSTIC STUDIES LABORATORY: Glucose 143, BUN 21, creatinine 0.8, sodium 148, potassium 3.8, chloride 113, bicarb 20, calcium 9.7, total protein 7.4, albumin 4.8, direct bilirubin 0.4, AST 68, ALT 41, and alkaline phosphatase 134. Ammonia level is 32. Lactic acid is 2.2. Acetaminophen level less than 10 and salicylate less than 4. Alcohol less than 5. INR is 1. WBC 14.9, hemoglobin 12.1, hematocrit 37.6, platelets 246,000, and neutrophils 90.3 Urinalysis shows trace leukocyte esterase, negative bacteria, and negative nitrites. IMAGING: Chest x-ray is negative. CT of the head is negative. ASSESSMENT 1. Altered mental status. 2. Bipolar disorder, noncompliant. 3. Dehydration with a sodium of 148. 4. Lactic acidosis with no source of infection. PLAN Admit the patient to observation with telemetry. Continue with IV fluids of D5 half NS at 75 mL/hour. Repeat the lactic acid. Patient has received antibiotics in the emergency room for unknown reason. Will have a psych evaluation for the altered mental status. Follow up with the lab results, and more recommendations will follow as more lab results are available. Continue with sitter at the bedside one-to-one. Further Unit #: [id number] #: [id number] Patient: AMMON BELLO recommendations will follow. Dictated by Silva Snow TD: 05/23/2016 21:19 JOB #: [id number] HISTORY AND PHYSICAL X X HISTORY AND PHYSICAL
--- NOTE | ~2016-05-23 | EKG ---
PATIENT: AMMON BELLO UNIT #: [id number] Ventricular Rate: 134 BPM Atrial Rate: 134 BPM P-R Interval: 122 ms QRS Duration: 68 ms Q-T Interval: 312 ms QTC Calculation(Bezet): 465 ms P [place]: 82 degrees Calculated R [place]: -45 degrees Calculated T [place]: 77 degrees Diagnosis Line: Sinus tachycardia Diagnosis Line: Left anterior fascicular block Diagnosis Line: Possible Anterior infarct , possibly acute Diagnosis Line: Lateral injury pattern Diagnosis Line: * ACUTE IA Diagnosis Line: Abnormal ECG Diagnosis Line: When compared with ECG of 23-MAY-2016 14:53, Diagnosis Line: Fusion complexes are no longer Present Diagnosis Line: Left anterior fascicular block is now Present Diagnosis Line: Anterior infarct is now Present Diagnosis Line: Confirmed by REX NEW MD ([id number]) on 05/25/2016 Diagnosis Line: 7:26:00 PM INTERPRETING MD: VIRGEN BRUNNER
--- NOTE | ~2016-05-23 | DS ---
Unit #: [id number] #: [id number] Patient: AMMON BELLO [id number] [address] [place], [place] [address] [id number] I MR#: [id number] NAME: AMMON BELLO. ROOM: 573 Age: 71 Sex: F Admission Date: 05/23/2016 : 1945 Discharge Date: 05/31/2016 Attending Physician: Fernando Alvarado M.D. Primary Care Physician: Zan Davis DISCHARGE SUMMARY ADDENDUM Please see discharge summaries dictated for original hospital stay as well as on 05/29/2016 for details through hospital course. Essentially in the afternoon of 05/29/2016, Physical and Occupational Therapy Services were called to re-evaluate the patient. She had difficulty even making a few steps secondary to her hip and pelvic fractures and therefore after review of her associated comorbid conditions, Physical and Occupational therapy Services recommended rehab at the time of discharge, and therefore the patient was held in the hospital on the day of 05/30/2016. Today, she is otherwise stable. Once appropriate arrangements will be made for her to be transitioned to a rehab facility, she will be discharged later this afternoon. Medications have been adjusted. Please see below for new medication list. Her blood pressure systolic has remained in the 90s to 100 and therefore, her Lopressor as well as lisinopril both have been adjusted accordingly. Lopressor has been discontinued. Her lisinopril has been decreased down to 2.5 mg on a daily basis. The patient has completed her Medrol Dosepak secondary to prescription for tachycardic cardiomyopathy. FINAL DISCHARGE DIAGNOSIS Please see above. DISCHARGE DISPOSITION To rehab. DISCHARGE MEDICATIONS Symbicort 160/4.5 two puffs b.i.d., Ventolin 1 puff q.4 p.r.n., Vimpat 100 mg p.o. b.i.d., Keppra 500 mg p.o. b.i.d., Haldol 0.5 mg p.o. q.8, Zocor 10 mg p.o. q.h.s., lisinopril 2.5 mg p.o. daily, Pepcid 20 mg p.o. b.i.d., Singulair 10 mg p.o. q.h.s., aspirin 81 mg p.o. daily. Dictated by... Silva Gonzalez/lety TD: 06/01/2016 00:58 JOB #: [id number] Unit #: [id number] #: [id number] Patient: AMMON BELLO DISCHARGE SUMMARY Page 1 of 1 X Fernando Alvarado MD X DISCHARGE SUMMARY
--- NOTE | ~2016-05-23 | EKG ---
PATIENT: AMMON BELLO UNIT #: [id number] Ventricular Rate: 115 BPM Atrial Rate: 115 BPM P-R Interval: 128 ms QRS Duration: 70 ms Q-T Interval: 346 ms QTC Calculation(Bezet): 478 ms P [place]: 56 degrees Calculated R [place]: -21 degrees Calculated T [place]: 30 degrees Diagnosis Line: Sinus tachycardia Diagnosis Line: Septal infarct (cited on or before 23-MAY-2016) Diagnosis Line: Abnormal ECG Diagnosis Line: When compared with ECG of 23-MAY-2016 22:12, Diagnosis Line: (unconfirmed) Diagnosis Line: Serial changes of evolving Septal infarct Present Diagnosis Line: Confirmed by REX NEW MD ([id number]) on 05/25/2016 Diagnosis Line: 7:29:02 PM INTERPRETING MD: VIRGEN BRUNNER
--- NOTE | ~2016-05-23 | CR72 ---
[facility] A Service of [facility] RADIOLOGY TEXT RESULTS PATIENT: AMMON BELLO LOCATION: [address] : [birth year] UNIT #: [id number] AGE: [address]: Fernando Alvarado MD SEX: F ORDER DR: [id number] [facility] [address] [place], [place] [address] [id number] I MR#: [id number] Acc #: [id number] NAME: AMMON BELLO. : 1945 SEX: F STUDY DATE/TIME: 05/24/2016 4:46 UNIT: [facility] ROOM: [facility] STUDY DESCRIPTION: CR Chest Single View Portable Attending Physician: Fernando Alvarado M.D. Ordering Physician: Estella Goff M.D. Primary Care Physician: Zan Davis MEDICAL IMAGING REPORT This report is preliminary unless electronic signature is present EXAM AP portable chest Date: 05/24/2016 04:46 HISTORY PICC line placement. Admitted 05/23/2016. Shortness of breath and confusion. COMPARISON AP portable chest 05/23/2016 at 14:32 FINDINGS Right arm approach PICC tip extends to the cavoatrial junction. No visible pneumothorax. No acute airspace disease changes are seen. Heart size is stable. Calcific atherosclerotic changes in the aortic knob. Chronic-appearing degenerative changes in both shoulders. Osteopenia. IMPRESSION 1. Right arm approach PICC tip extends to the cavoatrial junction. No pneumothorax. 2. No acute airspace disease. Dictated by... Giulia Prado M.D. THIS IS AN ELECTRONICALLY VERIFIED REPORT Giulia Prado M.D. at 05/24/2016 10:02 PM SOO/ten TD: 05/24/2016 08:34 JOB #: [id number] [facility] A Service of [facility] RADIOLOGY TEXT RESULTS PATIENT: AMMON BELLO LOCATION: [address]- : 43 UNIT #: [id number] AGE: [address]: Fernando Alvarado MD SEX: F ORDER DR: MEDICAL IMAGING REPORT COPY
--- NOTE | ~2016-05-23 | CO ---
Unit #: [id number] #: [id number] Patient: SHERICE KO [id number] [address] [place], [place] [address] [id number] I MR#: [id number] NAME: SHERICE KO. ROOM: 573 Age: 71 Sex: F Admission Date: 05/23/2016 : 1945 Attending Physician: Fernando Alvarado M.D. Primary Care Physician: Zan Davis Consultation Date: 05/26/2016 CONSULTATION REPORT REASON FOR CONSULTATION Followup. DISCUSSION Ms. Sherice Ko is a 71-year-old white female, seen in room 573, bed 1, at [facility] on 05/26/2016. The patient was pleasant and cooperative during interview, alert, and oriented in time, place, and person. The patient was able to answer question more spontaneously. The patient is feeling much better. Reported that she has a history of bipolar disorder, and during her manic "seizure" she has these episodes. The patient denied anyone eating her up or causing any injuries. The patient is sleeping good, and eager to go home. The patient currently denied any thoughts of harming self or others; alert and oriented in time, place, and person. REVIEW OF SYSTEMS Complete review of systems unremarkable. MENTAL STATUS EXAMINATION General appearance, the patient is dressed casually, lying comfortably in bed, made good eye contact. Attention span and concentration, fair. Speech, regular rate, coherent, spontaneous, oriented in time, place, and person. Mood and affect were labile. Thought process, coherent, goal directed. Thought content, the patient denied any thoughts of harming self or others or any psychotic symptom. Recent and remote memory, fair. Language, able to name object, repeat phrases. Fund of knowledge, fair to slightly impaired. DIAGNOSES Psychiatric: Bipolar mood disorder, not otherwise specified, F31.89. Secondary diagnosis: Deferred. Medical diagnosis: Please refer to H and P. Stressors: Psychosocial stressor. ASSESSMENT/PLAN 1. Supportive psychotherapy and psychoeducation were provided to the patient. 2. Educated about benefits and side effects of medication and course and prognosis of illness. The patient can be discharged from [facility] as the patient is stable after the patient is cleared by APS. Please feel free to call if any questions, telephone Unit #: [id number] #: [id number] Patient: SHEIRCE KO #[phone]. Dictated by... Silva Shetty/lety TD: 05/27/2016 06:50 JOB #: [id number] CONSULTATION REPORT X Giancarlo Doshi MD X CONSULTATION REPORT
--- NOTE | ~2016-05-23 | CO ---
Unit #: [id number] #: [id number] Patient: AMMON BELLO [id number] [address] [place], [place] [address] [id number] I MR#: [id number] NAME: AMMON BELLO. ROOM: [facility] Age: 71 Sex: F Admission Date: 05/23/2016 : 1945 Attending Physician: Fernando Alvarado M.D. Primary Care Physician: Zan Davis CONSULTATION REPORT REASON FOR CONSULTATION Elevated troponin. HISTORY OF PRESENT ILLNESS This is a 71-year-old white female who was admitted with mental status changes. She was seen by our group in February of 2015 because of congestive heart failure. She gave a history at that time of a myocardial infarction 30 years ago and had cardiac catheterization at [facility] and found no blockages according to previous records. She is known to have hypertension, hyperlipidemia and bipolar disorder. According to the , she has had no recent complaints of chest pain or shortness of breath. It was felt the patient was initially dehydrated and was started on IV fluids. Her lactic acid was elevated at 2. Electrocardiogram was obtained, and it was felt the patient had an acute ST elevation myocardial infarction. EKG was faxed to the on-call derrick engineer and felt that there was no acute ST elevation. Her troponin was elevated at 9.05 but has since peaked at 11.69. She has been treated with Lovenox, aspirin and nitrates. The patient remained delirious and was unable to tell if she had chest pain. She was transferred to the intensive care unit. PAST MEDICAL HISTORY 1. Two-D echocardiogram, 05/24/2016, shows an ejection fraction of 35%. There was akinesis to the mid and distal septum, apex, inferior apical wall. Right ventricular systolic pressure 47 mmHg. There was severe mitral regurgitation, qnddofkx-et-xntufd tricuspid regurgitation. 2. The patient reported myocardial infarction 30 years ago with normal cath at [facility]. No details available. 3. Hypertension. 4. Hyperlipidemia. 5. Peripheral vascular disease. 6. Cerebrovascular accident. 7. Bipolar disorder. 8. Seizure disorder. 9. COPD. 10. Nonsmoker. PAST SURGICAL HISTORY 1. Parotid surgery. 2. Cholecystectomy. 3. Thyroid surgery. SOCIAL HISTORY Unit #: [id number] #: [id number] Patient: AMMON BELLO The patient is . There is no history of tobacco, alcohol or illicit drug use. FAMILY HISTORY Negative for coronary artery disease. ALLERGIES Promethazine, sulfa and IV contrast. HOME MEDICATIONS 1. Neurontin 800 mg t.i.d. 2. Singulair 10 mg q.h.s. 3. Requip 0.25 mg q.8 hours. 4. Simvastatin 10 mg q.h.s. 5. Protonix 40 mg daily. 6. Symbicort 160/4.5 mcg 2 puffs b.i.d. 7. Albuterol 1 puff q.4 hours p.r.n. 8. Vimpat 100 mg b.i.d. 9. Aspirin 81 mg daily. 10. Keppra 500 mg b.i.d. 11. Lortab 5/325 mg q.4 hours p.r.n. 12. Zyprexa 5 mg q.h.s. REVIEW OF SYSTEMS Unable to obtain because of the patient's confusion. PHYSICAL EXAMINATION VITAL SIGNS: Blood pressure 160/90, heart rate 100, temperature 99.6. GENERAL: This is a 71-year-old white female who is in no acute distress. NEUROLOGIC: She is awake but nonverbal. There are no without focal weaknesses. NECK: Trachea is midline. No thyromegaly or lymphadenopathy. No jugular venous distention. CARDIOVASCULAR: S1, S2. Heart sounds are normal. No murmurs, no rubs, no clicks. Regular rate and rhythm. CHEST: Clear to auscultation without rales, rhonchi or wheezes. ABDOMEN: Soft, nontender with bowel sounds present. No organomegaly. EXTREMITIES: Without leg edema. SKIN: Warm and dry. DIAGNOSTIC STUDIES LABORATORY STUDIES: Glucose 155, BUN 23, creatinine 0.9, sodium 148, potassium 3.3. CK total 2,443, MB 46.6, MB index 1.9, troponin 9.05 to 11.69. Cholesterol 201, triglycerides 175, LDL 97, HDL 69. White count 15.4, hemoglobin 12.2, hematocrit 37.3, platelet count 245. IMAGING: Chest x-ray - No active disease. CARDIOVASCULAR STUDIES: Electrocardiogram on 05/23 shows normal sinus rhythm with no acute ischemic changes. Repeat electrocardiogram, 05/24, shows anterior wall myocardial infarction with new ST changes. Q waves noted in V1-V4. IMPRESSION 1. Acute anterior wall myocardial infarction. 2. Cardiomegaly with ejection fraction of 35%. 3. Hypertension. Unit #: [id number] #: [id number] Patient: AMMON BELLO 4. Hyperlipidemia. 5. Bipolar disorder. 6. Hypokalemia. PLAN 1. Cardiology was consulted for elevated troponin. 2. Troponin is equivalent to acute non-ST elevation anterior wall myocardial infarction with anterior wall electrocardiogram changes. 3. Recommend emergent cardiac catheterization with PCI. This has been discussed with the patient's on the phone. Procedure risks discussed with him. He is agreeable. 4. Will start the patient on IV fluids. 5. Supplement potassium. 6. Further recommendations pending results of cardiac catheterization. Dictated by... Gui Khan A.P.R.N. for Silva Parra/javad TD: 05/25/2016 09:48 JOB #: [id number] CONSULTATION REPORT X Gui Khan APRN X CONSULTATION REPORT
--- NOTE | ~2016-05-23 | CO ---
Unit #: [id number] #: [id number] Patient: AMMON KO [id number] [address] [place], [place] [address] [id number] I MR#: [id number] NAME: AMMON KO ROOM: 573 Age: 71 Sex: F Admission Date: 05/23/2016 : 1945 Attending Physician: Fernando Alvarado M.D. Primary Care Physician: Zan Davis Consultation Date: 05/29/2016 CONSULTATION REPORT REASON FOR CONSULTATION Pelvis fracture. HISTORY OF PRESENT ILLNESS Ms. Ko is a 71-year-old female with a left pelvis fracture. The patient reports that she has a history of bipolar disease. She reports that she blacks out on occasion. She does not recall any details to how she injured the pelvis or broke the pelvis. She does have a history of a left hip fracture that was repaired by a medhat and screws. She does not recall the details of that injury either. The patient reports "she does crazy things when because of her bipolar disease." The patient reports that she lives with her and her grandkids. Her daughter lives down the street. She denies any abuse from her or family members. PAST MEDICAL HISTORY Significant for altered mental status, pseudoseizures, anxiety, bipolar, hyperlipidemia, hypertension, chronic respiratory failure, diabetes. MEDICATIONS Include Zyprexa, Lortab, Keppra, aspirin, Vimpat, Ventolin, Symbicort, Neurontin, montelukast, Requip, Zocor, and pantoprazole. ALLERGIES Phenergan, penicillin, sulfa and IV dye. FAMILY HISTORY Insignificant. SOCIAL HISTORY The patient lives at home with her and grandkids. She denies any smoking alcohol or illicit drug use. PAST SURGICAL HISTORY Significant for parotid surgery, cholecystectomy, thyroid surgery, EGD and colonoscopy, and left hip pinning. REVIEW OF SYSTEMS Ten organ systems reviewed. The patient denies any blurry vision, congestion, sore throat, shortness of breath, chest pain, abdominal pain, urinary incontinence, numbness, tingling, skin ulcers, lesions, anxiety, depression. Positive for joint pain. PHYSICAL EXAMINATION GENERAL: No acute distress. Alert and oriented x3. Unit #: [id number] #: [id number] Patient: AMMON KO VITAL SIGNS: Temperature 98.5, pulse 85, respirations 20, blood pressure 91/68. HEENT: PERRLA. Nonicteric sclerae. THORAX: Trachea midline. No thyromegaly. CARDIAC: S1, S2. No extra sounds or murmurs. LUNGS: Clear to auscultation. No rales or rhonchi. ABDOMEN: Nondistended, nontender. Positive bowel sounds. : Deferred. MUSCULOSKELETAL: No erythema or ecchymosis. 2+ dorsalis pedis bilateral pulses. Positive bruising and ecchymosis to the right neck. Abrasions at both feet, both knees, and both elbows. NEUROLOGIC: 2 through 12 intact. SKIN: Cool and dry. PSYCHIATRIC: Good insight and good judgment. Mood and affect are pleasant. DIAGNOSTIC STUDIES IMAGING STUDIES: X-rays of the hip and CT scan of the pelvis shows a nondisplaced left superior and inferior pubic ramus fracture with callus formation. ASSESSMENT Left pelvis fracture. PLAN I have discussed treatment options with the patient. No surgical intervention is warranted at this time. We will have physical therapy ambulate the patient. She is weightbearing as tolerated with a walker. The patient will need a followup appoint with Dr. Patel in 1 month. The patient will need rehab placement. Dictated by... Kimmy Salvador for Silva Zamarripa/lety TD: 05/29/2016 21:13 JOB #: [id number] CONSULTATION REPORT X Morena Guthrie CONSULTATION REPORT
[2016-05-23 13:28] LABS: BASOPHIL# 0.1 X10e3 (0-0.3); BASOPHIL% 0.5 % (0-2.5); HEMATOCRIT 37.6 % (35.0-45.0); HEMOGLOBIN 12.1 gm/dL (12.0-16.0); LYMPHOCYTE# 0.4 X10e3 (1.0-3.5); LYMPHOCYTE% 2.6 % (17.0-45.0); MEAN CELL VOLUME 89.3 FL (83-96); MEAN CORPUSCULAR HEMOGLOBIN 28.8 PG (28-34); MEAN CORPUSCULAR HGB CONC 32.2 g/dL (30-36); MONOCYTE% 6.6 % (3.0-12.0); NEUTROPHIL# 13.5 X10e3 (1.5-7.1); NEUTROPHIL% 90.3 % (40-75); PLATELET COUNT 246 X10e3 (140-420); RED BLOOD COUNT 4.21 X10e (3.90-5.30); WHITE BLOOD COUNT 14.9 X10e3 (4.0-10.5)
[2016-05-23 13:49] LABS: DIFF IND NO
[2016-05-23 13:56] LABS: URINE SOURCE CATH
[2016-05-23 14:05] LABS: URINE APPEARANCE CLEAR; URINE BILIRUBIN NEG (NEG); URINE BLOOD 1+ (NEG); URINE COLOR YELLOW; URINE GLUCOSE NEG (NEG); URINE KETONE NEG (NEG); URINE LEUKOCYTE ESTERASE TRACE (NEG); URINE NITRATE NEG (NEG); URINE PROTEIN NEG (NEG); URINE SPECIFIC GRAVITY 1.014 (1.003-1.035); URINE UROBILINOGEN 0.2 MG/DL (NEG)
[2016-05-23 14:08] LABS: URBCS1 AUWI 0-2 /[HPF] (0-2); URINE BACTERIA AUWI NEG (NEGATIVE); URINE SQUAMOUS EPITHELIAL CELL NONE SEEN /[HPF]; UWBCS1 AUWI 0-2 (0-5)
[2016-05-23 14:09] LABS: CULTURE INDICATED? NO
[2016-05-23 14:22] LABS: AMPHETAMINE NEG (NEG); BARBITURATES NEG (NEG); BENZODIAZEPINES NEG (NEG); COCAINE NEG (NEG); MARIJUANA NEG (NEG); OPIATES POS (NEG); TRICYCLIC ANTIDEPRESSANTS NEG (NEG); U METHADONE NEG (NEG)
[~2016-05-23 14:27] MED LIST changes: +ZYPREXA PO
[2016-05-23 15:20] LABS: PARTIAL THROMBOPLASTIN TIME 23.6 SECONDS (23.5-31.3); PROTHROMBIN TIME (PATIENT) 10.9 SECONDS (9.6-11.5)
[2016-05-23 15:29] LABS: ALBUMIN SERUM 4.8 g/dL (3.5-5.0); ALKALINE PHOSPHATASE 134 U/L (32-92); ALT (SGPT) 41 U/L (10-40); AST (SGOT) 68 U/L (10-42); BILIRUBIN, DIRECT 0.4 mg/dL (0.0-0.2); BILIRUBIN,INDIRECT 1.3 mg/dL (0.0-0.9); BILIRUBIN,TOTAL 1.7 mg/dL (0.2-2.0); BLOOD UREA NITROGEN 21 mg/dL (9-23); BUN/CREATININE RATIO 26.25; CALCIUM SERUM 9.7 mg/dL (8.4-10.2); CARBON DIOXIDE 20 mmol/L (22-31); CHLORIDE 113 mmol/L (100-111); CREATININE SERUM 0.8 mg/dL (0.6-1.4); GLOM FILT RATE Estimated ABOVE60 mL/min (>60); GLUCOSE FASTING 143 mg/dL (70-110); POTASSIUM 3.8 mmol/L (3.5-5.1); PROTEIN TOTAL SERUM 7.4 g/dL (6.0-8.3); SALICYLATE <4.0 mg/dL; SODIUM 148 mmol/L (135-145)
[2016-05-23 15:30] LABS: ACETAMINOPHEN <10 ug/mL; ALCOHOL BLOOD <5 mg/dL (0)
[2016-05-24 00:51] LABS: %MB 1.9 % (0.0-4.0); MB 46.6 ng/ml
[2016-05-24 05:33] LABS: BASOPHIL# 0.1 X10e3 (0-0.3); BASOPHIL% 0.4 % (0-2.5); HEMATOCRIT 37.3 % (35.0-45.0); HEMOGLOBIN 12.3 gm/dL (12.0-16.0); LYMPHOCYTE# 1.4 X10e3 (1.0-3.5); LYMPHOCYTE% 9.1 % (17.0-45.0); MEAN CELL VOLUME 87.3 FL (83-96); MEAN CORPUSCULAR HEMOGLOBIN 28.8 PG (28-34); MEAN PLATELET VOLUME 8.6 FL (6.5-11.5); MONOCYTE# 1.5 X10e3 (0-1.0); MONOCYTE% 9.9 % (3.0-12.0); NEUTROPHIL# 12.4 X10e3 (1.5-7.1); NEUTROPHIL% 80.6 % (40-75); PLATELET COUNT 245 X10e3 (140-420); RED BLOOD COUNT 4.27 X10e (3.90-5.30); RED CELL DISTRIBUTION WIDTH 13.8 % (11.0-15.5); WHITE BLOOD COUNT 15.4 X10e3 (4.0-10.5)
[2016-05-24 05:35] LABS: DIFF IND YES
[2016-05-24 05:52] LABS: BLOOD UREA NITROGEN 23 mg/dL (9-23); BUN/CREATININE RATIO 25.55; CALCIUM SERUM 9.4 mg/dL (8.4-10.2); CARBON DIOXIDE 19 mmol/L (22-31); CHLORIDE 115 mmol/L (100-111); CREATININE SERUM 0.9 mg/dL (0.6-1.4); GLOM FILT RATE Estimated ABOVE60 mL/min (>60); GLUCOSE FASTING 155 mg/dL (70-110); POTASSIUM 3.3 mmol/L (3.5-5.1); SODIUM 148 mmol/L (135-145)
[2016-05-24 05:56] LABS: PLATELET ESTIMATE NORMAL (NORMAL); RBC NORMAL YES
[2016-05-24 06:53] LABS: CHOLESTEROL 201 mg/dL (0-200); HDL CHOLESTEROL 69 mg/dL (35-95); LDL CHOLESTEROL 97 mg/dL (-130); LDL/HDL RATIO 1 RATIO (0-4); TRIGLYCERIDES 175 mg/dL (10-160)
[2016-05-24 06:57] LABS: INR 1.1; PARTIAL THROMBOPLASTIN TIME 34.1 SECONDS (23.5-31.3)
[2016-05-25 05:22] LABS: BASOPHIL# 0.1 X10e3 (0-0.3); BASOPHIL% 0.5 % (0-2.5); HEMATOCRIT 35.2 % (35.0-45.0); HEMOGLOBIN 11.3 gm/dL (12.0-16.0); LYMPHOCYTE# 1.4 X10e3 (1.0-3.5); LYMPHOCYTE% 9.6 % (17.0-45.0); MEAN CELL VOLUME 87.7 FL (83-96); MEAN CORPUSCULAR HEMOGLOBIN 28.1 PG (28-34); MEAN PLATELET VOLUME 7.9 FL (6.5-11.5); MONOCYTE# 1.5 X10e3 (0-1.0); MONOCYTE% 10.5 % (3.0-12.0); NEUTROPHIL# 11.6 X10e3 (1.5-7.1); NEUTROPHIL% 79.4 % (40-75); PLATELET COUNT 218 X10e3 (140-420); RED BLOOD COUNT 4.01 X10e (3.90-5.30); RED CELL DISTRIBUTION WIDTH 14.4 % (11.0-15.5); WHITE BLOOD COUNT 14.6 X10e3 (4.0-10.5)
[2016-05-25 05:28] LABS: DIFF IND NO
[2016-05-25 06:31] LABS: BLOOD UREA NITROGEN 26 mg/dL (9-23); BUN/CREATININE RATIO 37.14; CALCIUM SERUM 8.9 mg/dL (8.4-10.2); CARBON DIOXIDE 20 mmol/L (22-31); CHLORIDE 110 mmol/L (100-111); CREATININE SERUM 0.7 mg/dL (0.6-1.4); GLOM FILT RATE Estimated ABOVE60 mL/min (>60); GLUCOSE FASTING 151 mg/dL (70-110); POTASSIUM 3.3 mmol/L (3.5-5.1); SODIUM 141 mmol/L (135-145)
[2016-05-26 17:08] LABS: BLOOD UREA NITROGEN 13 mg/dL (9-23); BUN/CREATININE RATIO 18.57; CALCIUM SERUM 8.2 mg/dL (8.4-10.2); CARBON DIOXIDE 22 mmol/L (22-31); CHLORIDE 114 mmol/L (100-111); CREATININE SERUM 0.7 mg/dL (0.6-1.4); GLOM FILT RATE Estimated ABOVE60 mL/min (>60); GLUCOSE FASTING 127 mg/dL (70-110); MAGNESIUM 1.9 mg/dL (1.6-3.0); POTASSIUM 4.2 mmol/L (3.5-5.1); SODIUM 138 mmol/L (135-145)
[2016-05-31 05:28] LABS: HEMATOCRIT 31.7 % (35.0-45.0); MEAN CELL VOLUME 90.7 FL (83-96); MEAN CORPUSCULAR HEMOGLOBIN 28.8 PG (28-34); MEAN CORPUSCULAR HGB CONC 31.7 g/dL (30-36); MEAN PLATELET VOLUME 8.8 FL (6.5-11.5); RED BLOOD COUNT 3.49 X10e (3.90-5.30); RED CELL DISTRIBUTION WIDTH 15.2 % (11.0-15.5); WHITE BLOOD COUNT 5.4 X10e3 (4.0-10.5)
[2016-05-31 06:03] LABS: BLOOD UREA NITROGEN 16 mg/dL (9-23); BUN/CREATININE RATIO 22.85; CALCIUM SERUM 7.8 mg/dL (8.4-10.2); CARBON DIOXIDE 22 mmol/L (22-31); CHLORIDE 110 mmol/L (100-111); CREATININE SERUM 0.7 mg/dL (0.6-1.4); GLOM FILT RATE Estimated ABOVE60 mL/min (>60); GLUCOSE FASTING 101 mg/dL (70-110); POTASSIUM 4.5 mmol/L (3.5-5.1); SODIUM 137 mmol/L (135-145)
== END 2016-05-31 16:30 | DRG 280 ==
LOC: CED 14:27 → CEDOF 16:37 → C2A 18:18 → C5C 22:09 → CICCU2 05-24 01:22 → C5C 05-25 18:19
PROVIDERS: Emergency Medicine; Family Medicine; Internal Medicine; Internal Medicine Cardiovascular Disease; Nurse Practitioner
PROC: 4A023N7 Measurement of Cardiac Sampling and Pressure, Left Heart, Percutaneous Approach (ICD-10-PCS; principal; 2016-05-24)
PROC: B211YZZ Fluoroscopy of Multiple Coronary Arteries using Other Contrast (ICD-10-PCS; 2016-05-24)
PROC: B215YZZ Fluoroscopy of Left Heart using Other Contrast (ICD-10-PCS; 2016-05-24)
PROC: B24BYZZ Ultrasonography of Heart with Aorta using Other Contrast (ICD-10-PCS; 2016-05-24)
DX: I21.4 Non-ST elevation (NSTEMI) myocardial infarction (principal); I50.21 Acute systolic (congestive) heart failure; I47.2 Ventricular tachycardia; E87.2 Acidosis; S32.592A Other specified fracture of left pubis, initial encounter for closed fracture; F31.89 Other bipolar disorder; F05 Delirium due to known physiological condition; I51.81 Takotsubo syndrome; E86.0 Dehydration; Z91.19 Patient's noncompliance with other medical treatment and regimen; F41.9 Anxiety disorder, unspecified; E78.5 Hyperlipidemia, unspecified; I10 Essential (primary) hypertension; E11.9 Type 2 diabetes mellitus without complications; Z79.84 Long term (current) use of oral hypoglycemic drugs; Z88.0 Allergy status to penicillin; Z88.2 Allergy status to sulfonamides; Z91.041 Radiographic dye allergy status; Z79.82 Long term (current) use of aspirin; I73.9 Peripheral vascular disease, unspecified; G40.909 Epilepsy, unspecified, not intractable, without status epilepticus; Z91.81 History of falling; I34.0 Nonrheumatic mitral (valve) insufficiency
CPT/HCPCS: 36415; 51701; 70450; 71010; 72192; 73502; 80048; 80061; 80076; 80307; 81003; 82140; 82550; 82553; 82947; 83605; 83735; 84443; 84484; 85025; 85027; 85610; 85730; 87040; 92526; 92610; 93005; 93306; 94760; 96372; 97110; 97163; 97167; 97530; 97535; 99285; C1769; C1887; C1894; C9113; G0480; G8978-GP; G8979-GP; G8987-GO; G8988-GO; G8996-GN; G8997-GN; G8998-GN; J0360; J0696; J1200; J1644; J1650; J1815; J1956; J2250; J2270; J2405; J2930; J3010; J3370; J3475; J3480; J3486; J3490

== ENCOUNTER 2016-10-15 17:35 | Emergency (ER) | payer MEDICARE ==
[~2016-10-15] VITALS: Ht 160 cm; Wt 64.4 kg
--- NOTE | ~2016-10-15 | CR126 ---
[facility] A Service of [facility] & [facility] RADIOLOGY TEXT RESULTS PATIENT: AMMON BELLO LOCATION: SED : 43 UNIT #: [id number] AGE: [address]: Tim Hernandez MD SEX: F ORDER DR: [id number] [place] [id number] E MR#: [id number] Acc #: [id number] NAME: AMMON BELLO : 1945 SEX: F STUDY DATE/TIME: 10/15/2016 18:41 UNIT: SED ROOM: STUDY DESCRIPTION: CR Foot Complete Min 3 View Lt Attending Physician: Tim Hernandez M.D. Ordering Physician: Tim Hernandez M.D. Primary Care Physician: Zan Davis MEDICAL IMAGING REPORT This report is preliminary unless electronic signature is present. EXAM Left foot, 10/15, at 1841 hours. INDICATIONS Pain and bruising after multiple falls since Tuesday of this week. FINDINGS Three views of the left foot were obtained. Patient is osteopenic. Plantar calcaneal spurring noted. There are fractures through the necks of the second through fifth metatarsals with some slight lateral angulation. There is also a fracture of the base of the fifth proximal phalanx. No other acute fractures are seen. IMPRESSION Fractures of the necks of the second through fifth metatarsals. There is also a fracture of the base of the fifth proximal phalanx. Dictated by... Aldo Pat Jr., M.D. THIS IS AN ELECTRONICALLY VERIFIED REPORT Aldo Pat Jr., M.D. at 10/16/2016 4:12 PM MARQUIS/eugene TD: 10/15/2016 23:48 JOB #: [id number] MEDICAL IMAGING REPORT Page 1 of 1
--- NOTE | ~2016-10-15 | CR127 ---
[facility]. [facility] A Service of [facility] RADIOLOGY TEXT RESULTS PATIENT: AMMON BELLO LOCATION: SED : 43 UNIT #: [id number] AGE: [address]: Tim Hernandez MD SEX: F ORDER DR: [id number] [place] [id number] E MR#: [id number] Acc #: [id number] NAME: AMMON BELLO : 1945 SEX: F STUDY DATE/TIME: 10/15/2016 18:41 UNIT: SED ROOM: STUDY DESCRIPTION: CR Foot Complete Min 3 View Rt Attending Physician: Tim Hernandez M.D. Ordering Physician: Tim Hernandez M.D. Primary Care Physician: Zan Davis MEDICAL IMAGING REPORT This report is preliminary unless electronic signature is present. EXAM Right foot 10/15/2016 INDICATIONS Pain and bruising after multiple falls since Tuesday of this week. FINDINGS Three views of the right foot were obtained. Patient is osteopenic. There is acute fracture of the head of the fifth metatarsal. No other acute fractures are seen. There is degenerative disease in the first MTP joint. IMPRESSION Acute fracture of the head of the fifth metatarsal. Dictated by... Aldo Pat Jr., M.D. THIS IS AN ELECTRONICALLY VERIFIED REPORT Aldo Pat Jr., M.D. at 10/16/2016 4:12 PM MARQUIS/rudy TD: 10/15/2016 23:44 JOB #: [id number] MEDICAL IMAGING REPORT Page 1 of 1
[2016-10-15] MEDS ORDERED: TYLENOL #4 (17:50)
[2016-10-15] MEDS ORDERED: BACLOFEN10 MG (17:50)
== END 2016-10-15 20:08 | disposition home or self-care (01) ==
LOC: SED 17:35
DX: S92.351A Displaced fracture of fifth metatarsal bone, right foot, initial encounter for closed fracture (principal); S92.322A Displaced fracture of second metatarsal bone, left foot, initial encounter for closed fracture; S92.332A Displaced fracture of third metatarsal bone, left foot, initial encounter for closed fracture; S92.342A Displaced fracture of fourth metatarsal bone, left foot, initial encounter for closed fracture; S92.352A Displaced fracture of fifth metatarsal bone, left foot, initial encounter for closed fracture; I25.2 Old myocardial infarction; I10 Essential (primary) hypertension; W19.XXXA Unspecified fall, initial encounter; Y92.009 Unspecified place in unspecified non-institutional (private) residence as the place of occurrence of the external cause
CPT/HCPCS: 29515; 73630; 99283

== ENCOUNTER 2016-10-19 16:47 | Emergency (ER) | payer MEDICARE ==
--- NOTE | ~2016-10-19 | CT52 ---
[facility] A Service of [facility] & [facility] RADIOLOGY TEXT RESULTS PATIENT: AMMON BELLO LOCATION: SED : 43 UNIT #: [id number] AGE: [address]: Renetta Quan SEX: F ORDER DR: [id number] [address] [address] [id number] E MR#: [id number] Acc #: [id number] NAME: AMMON BELLO. : 1945 SEX: F STUDY DATE/TIME: 10/19/2016 17:24 UNIT: SED ROOM: STUDY DESCRIPTION: CT Cervical Spine Wo Cont Attending Physician: Renetta Quan Pa-C Ordering Physician: Tri Adhikari Primary Care Physician: [facility] REPORT This report is preliminary unless electronic signature is present. EXAM CT of the cervical spine without contrast dated 10/19/2016. COMPARISON CT cervical spine without contrast dated 11/13/2015. HISTORY Patient fell on 10/15/2016. Was seen here. Now, she has left shoulder and left-sided rib pain. FINDINGS CT of the cervical spine was obtained without contrast in the axial plane followed by sagittal and coronal reformats. This CT exam was performed with one or more of the following radiation dose reduction techniques: automatic exposure control, adjustment of mA and/or kV according to patient size, and iterative reconstruction. No acute fracture or subluxation is seen. Vertebral body heights and alignment are preserved. Anterior endplate osteophytes are at multiple levels, particularly at C5-6 and C6-7, along the posterior endplate osteophytes. Pre and paravertebral soft tissues do not demonstrate any significant abnormality. C2-3: Disc osteophyte complex with right uncinate spur and severe right facet hypertrophic change. Mild left facet hypertrophic change is noted with severe right neural foraminal narrowing. There is borderline size to mild canal stenosis and probably a dcunn-ya-chnd central protrusion. C3-4: Disc osteophyte complex with mild left and mlch-ly-wmtvehmx right facet hypertrophic change. No significant canal stenosis or neural foraminal narrowing. C4-5: Disc osteophyte complex with prominent left uncinate spur and borderline-sized canal. No neural foraminal narrowing. [facility]. [facility] A Service of [facility] & [facility] RADIOLOGY TEXT RESULTS PATIENT: AMMON BELLO LOCATION: [facility] [place] : 43 UNIT #: [id number] AGE: [address]: Renetta Quan SEX: F ORDER DR: C5-6: Disc osteophyte complex with prominent left uncinate spur and severe left neural foraminal narrowing. Borderline-sized canal and mild bilateral facet changes. C6-7: Disc osteophyte complex with mild left facet hypertrophic change. No significant canal stenosis. Mild left neural foraminal narrowing. C7-T1: Mild degenerative disc disease, but otherwise unremarkable. There is diffuse bony osteopenia. IMPRESSION 1. Diffuse bony osteopenia. 2. Degenerative changes are at multiple levels involving the discs and the facet joints. 3. Severe right C2-3 and left C5-6 neural foraminal narrowing are noted. Correlate with appropriate radiculopathy. 4. Diffuse bony osteopenia without acute displaced fracture, subluxation, jumped or purged facet joints. 1. Dictated by... Seth Dickens M.D. THIS IS AN ELECTRONICALLY VERIFIED REPORT Seth Dickens M.D. at 10/20/2016 3:28 PM CPR/pc TD: 10/20/2016 06:14 JOB #: [id number] MEDICAL IMAGING REPORT Page 1 of 1
--- NOTE | ~2016-10-19 | CR210 ---
[facility] A Service of [facility] RADIOLOGY TEXT RESULTS PATIENT: AMMON BELLO LOCATION: SED : 43 UNIT #: [id number] AGE: [address]: Renetta Quan SEX: F ORDER DR: [id number] [address] [address] [id number] E MR#: [id number] Acc #: [id number] NAME: AMMON BELLO. : 1945 SEX: F STUDY DATE/TIME: 10/19/2016 18:08 UNIT: SED ROOM: STUDY DESCRIPTION: CR Ribs Uni 2 View W PA Ch Lt Attending Physician: Renetta Quan Pa-C Ordering Physician: Tri Adhikari Primary Care Physician: Zan Delgado [facility] MEDICAL IMAGING REPORT This report is preliminary unless electronic signature is present. EXAM Frontal view of the chest with left-sided rib views dated 10/19/16. COMPARISON Single view chest dated 05/24/16. HISTORY Patient was seen here on 10/15/16 for a fall. Left rib and left shoulder pain now. FINDINGS Frontal view of the chest was obtained. It is a poor inspiratory film with prominence to the bronchovascular margins. No pleural effusion or pneumothorax. There are probably calcified bilateral hilar lymph nodes. Arteriosclerotic vascular calcifications are seen. Heart is borderline in size. There is mild enlargement of the main pulmonary artery along the left heart border. Two left-sided rib views were obtained. There is expected bony alignment architecture and mineralization without acute displaced fracture. Large spurs are noted along the inferior aspect of the left humeral head, with likely arthritic changes in the left shoulder. IMPRESSION 1. No obvious acute left-sided displaced rib fracture is seen. 2. 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 3. Mild prominence of the bronchovascular markings could be related to poor inspiration or mild interstitial lung disease. No patchy dense consolidation, pleural effusion, or pneumothorax. Dictated by... [facility] A Service of [facility] RADIOLOGY TEXT RESULTS PATIENT: AMMON BELLO LOCATION: [facility] [place] : 41 UNIT #: [id number] AGE: [address]: Renetta Quan SEX: F ORDER DR: Seth Dickens M.D. THIS IS AN ELECTRONICALLY VERIFIED REPORT Seth Dickens M.D. at 10/20/2016 3:28 PM CPR/pc TD: 10/20/2016 06:22 JOB #: [id number] MEDICAL IMAGING REPORT Page 1 of 1
--- NOTE | ~2016-10-19 | CR229 ---
[facility] A Service of [facility] & [facility] RADIOLOGY TEXT RESULTS PATIENT: AMMON BELLO LOCATION: SED : 41 UNIT #: [id number] AGE: [address]: Renetta Quan SEX: F ORDER DR: [id number] [address] [address] [id number] E MR#: [id number] Acc #: [id number] NAME: AMMON BELLO. : 1945 SEX: F STUDY DATE/TIME: 10/19/2016 18:08 UNIT: SED ROOM: STUDY DESCRIPTION: CR Shoulder Min 2 View Lt Attending Physician: Renetta Quan Pa-C Ordering Physician: Tri Adhikari Primary Care Physician: Zan Davis MEDICAL IMAGING REPORT This report is preliminary unless electronic signature is present. EXAM Left shoulder series HISTORY Trauma. Seen here 10/15 for fall, now left shoulder, left rib pain. Denies head or neck pain. Fall on 10/12 hitting head when falling. FINDINGS AP internal and external rotation views of left shoulder are presented with transscapular view. Diminished bony mineralization. No traumatic fracture or malalignment. Degenerative changes in the shoulder with prominent inferior humeral head osteophyte formations and narrowing of the glenohumeral joint space. The visualized ribs are intact. Visualized pulmonary parenchyma appears clear. Periarticular soft tissues unremarkable. Dictated by... Parker Adkins M.D. THIS IS AN ELECTRONICALLY VERIFIED REPORT Parker Adkins M.D. at 10/22/2016 7:37 AM Eriberto TD: 10/20/2016 08:03 JOB #: [id number] MEDICAL IMAGING REPORT Page 1 of 1
--- NOTE | ~2016-10-19 | CT71 ---
[facility] A Service of [facility] RADIOLOGY TEXT RESULTS PATIENT: AMMON BELLO LOCATION: SED : 41 UNIT #: [id number] AGE: [address]: Renetta Quan SEX: F ORDER DR: [id number] [address] [address] [id number] E MR#: [id number] Acc #: [id number] NAME: AMMON BELLO. : 1945 SEX: F STUDY DATE/TIME: 10/19/2016 17:59 UNIT: SED ROOM: STUDY DESCRIPTION: CT Head Wo Contrast Attending Physician: Renetta Quan Pa-C Ordering Physician: Tri Adhikari Primary Care Physician: [facility] REPORT This report is preliminary unless electronic signature is present. EXAM CT head. HISTORY Pain. Seen here 10/15/2016, for fall. Now complains of left shoulder, left rib pain. Denies head pain or neck pain or fall, on 10/12/2017 hitting head when falling. TECHNIQUE CT head performed skull base through vertex without intravenous contrast. This CT exam was performed with one or more of the following radiation dose reduction techniques: automatic exposure control, adjustment of mA and/or kV according to patient size, and iterative reconstruction. COMPARISON Comparison 05/23/2016. FINDINGS Brainstem unremarkable. Cerebellum and cerebral hemispheres show normal cosme matter-white matter differentiation. No hemorrhage. No evidence of acute cortical ischemia. The midline structures are nondisplaced. The basal ganglia show no acute abnormality. Ventricles, cisterns and sulci show zrpq-tz-yyuopnsv generalized enlargement, consistent with generalized atrophy. Stable appearance. No intra or extraaxial mass effect or abnormal intracranial fluid collection. There are cavernous carotid arterial calcifications. Intraorbital soft tissues are unremarkable. No fracture. Opacification of the right mastoid air cells. There is suggestion of mucosal thickening or fluid in the right middle ear. Correlate with any clinical indications of otomastoiditis. Weight should be given clinical assessment. Similar appearance on prior examination. IMPRESSION [facility] A Service of [facility] & [facility] RADIOLOGY TEXT RESULTS PATIENT: AMMON BELLO LOCATION: SED : 41 UNIT #: [id number] AGE: [address]: Renetta Quan SEX: F ORDER DR: 1. No acute abnormalities seen in the brain. No significant change from 05/23/2016. Chronic changes include: Moderate generalized atrophy, vascular calcifications. 2. Opacification of right mastoid air cells with mucosal thickening or small amount of fluid in the right middle ear. Correlate with any clinical signs or symptoms of right otomastoiditis. Similar appearance on prior examination. Dictated by... Parker Adkins M.D. THIS IS AN ELECTRONICALLY VERIFIED REPORT Parker Adkins M.D. at 10/22/2016 7:37 AM DAYRON/ramon TD: 10/20/2016 08:03 JOB #: [id number] MEDICAL IMAGING REPORT Page 1 of 1
[~2016-10-19 16:47] MED LIST changes: +BACLOFEN10 MG; +TYLENOL #4
[2016-10-19 17:50] LABS: BASOPHIL% 0.8 % (0-2.5); EOSINOPHIL# 0.1 X10e3 (0-0.7); EOSINOPHIL% 2.9 % (0.0-7.0); HEMATOCRIT 35.1 % (35.0-45.0); HEMOGLOBIN 11.6 gm/dL (12.0-16.0); LYMPHOCYTE# 1.4 X10e3 (1.0-3.5); LYMPHOCYTE% 30.7 % (17.0-45.0); MEAN CELL VOLUME 87.8 FL (83-96); MEAN PLATELET VOLUME 7.3 FL (6.5-11.5); MONOCYTE# 0.5 X10e3 (0-1.0); NEUTROPHIL# 2.6 X10e3 (1.5-7.1); NEUTROPHIL% 55.6 % (40-75); PLATELET COUNT 199 X10e3 (140-420); RED CELL DISTRIBUTION WIDTH 13.2 % (11.0-15.5); WHITE BLOOD COUNT 4.7 X10e3 (4.0-10.5)
[2016-10-19 17:58] LABS: DIFF IND NO
[2016-10-19 18:10] LABS: ALBUMIN SERUM 3.9 g/dL (3.5-5.0); ALKALINE PHOSPHATASE 70 U/L (32-92); ALT (SGPT) 11 U/L (10-40); AST (SGOT) 16 U/L (10-42); BILIRUBIN,TOTAL 0.3 mg/dL (0.2-2.0); BLOOD UREA NITROGEN 14 mg/dL (9-23); CALCIUM SERUM 8.4 mg/dL (8.4-10.2); CARBON DIOXIDE 23 mmol/L (22-31); CHLORIDE 103 mmol/L (100-111); CREATININE SERUM 0.7 mg/dL (0.6-1.4); GLUCOSE FASTING 105 mg/dL (70-110); POTASSIUM 3.5 mmol/L (3.5-5.1); PROTEIN TOTAL SERUM 6.2 g/dL (6.0-8.3); SODIUM 133 mmol/L (135-145)
[2016-10-19 18:14] LABS: BILIRUBIN, DIRECT <0.1 mg/dL (0.0-0.2); BILIRUBIN,INDIRECT 0.2 mg/dL (0.0-0.9)
[2016-10-19 18:29] LABS: URINE SOURCE CLEAN CATCH
[2016-10-19 18:30] LABS: URINE APPEARANCE CLEAR; URINE BILIRUBIN NEG (NEG); URINE BLOOD NEG (NEG); URINE COLOR YELLOW; URINE GLUCOSE NEG (NORM); URINE KETONE NEG (NEG); URINE LEUKOCYTE ESTERASE NEG (NEG); URINE NITRATE NEG (NEG); URINE PROTEIN NEG (NEG); URINE UROBILINOGEN 0.2 MG/DL (NORM)
[2016-10-19 18:33] LABS: MICRO INDICATED? NO
[2016-10-21 12:03] LABS: POC - CKMB <1.0 ng/mL (0.0-7.9)
[2016-10-21 12:04] LABS: POC - TROPONIN <0.05 ng/mL (<=0.05)
== END 2016-10-19 20:11 | disposition home or self-care (01) ==
LOC: SED 16:47
PROVIDERS: Physician Assistant
DX: M25.512 Pain in left shoulder (principal); R07.81 Pleurodynia; I11.0 Hypertensive heart disease with heart failure; I50.9 Heart failure, unspecified; E11.9 Type 2 diabetes mellitus without complications; R56.9 Unspecified convulsions; F31.9 Bipolar disorder, unspecified; Z87.440 Personal history of urinary (tract) infections; I25.2 Old myocardial infarction; Z90.49 Acquired absence of other specified parts of digestive tract; Z91.041 Radiographic dye allergy status; Z98.890 Other specified postprocedural states; X58.XXXA Exposure to other specified factors, initial encounter; Y92.009 Unspecified place in unspecified non-institutional (private) residence as the place of occurrence of the external cause
CPT/HCPCS: 36415; 70450; 71100; 72125; 73030; 80048; 80076; 81003; 82553; 84484; 85025; 99284